=== PATIENT | male | born 1950 ===

== ENCOUNTER 2017-02-06 13:13 | Emergency (ER) | payer MEDICARE | END 2017-02-06 14:57 | disposition home or self-care (01) | LOC: BURERS 13:13 | DX: G89.29 Other chronic pain (principal); J44.9 Chronic obstructive pulmonary disease, unspecified; I10 Essential (primary) hypertension; K21.9 Gastro-esophageal reflux disease without esophagitis; F32.9 Major depressive disorder, single episode, unspecified; F41.9 Anxiety disorder, unspecified; Z79.891 Long term (current) use of opiate analgesic; Z79.899 Other long term (current) drug therapy | CPT/HCPCS: 99284 ==